=== PATIENT | female | born 1945 | race American Indian/Alaskan Native ===

== ENCOUNTER → 2016-07-15 | Outpatient (CLI) | payer MEDICARE ==
[~2016-07-15] MED LIST: OMNIPAQUE 350 MG/ML, 100ML BOTTLE ONE
== END | disposition home or self-care (01) ==
LOC: CFH 09:19
PROVIDERS: ATTEND Internal Medicine Hematology & Oncology
DX: N28.1 Cyst of kidney, acquired (principal); R16.1 Splenomegaly, not elsewhere classified; Z90.49 Acquired absence of other specified parts of digestive tract
CPT/HCPCS: 74160; Q9967

== ENCOUNTER 2018-12-07 10:07 | Outpatient (CLI) | payer MEDICARE | END 2018-12-07 23:59 | disposition home or self-care (01) | LOC: CVU 10:07 | PROVIDERS: ATTEND Family Medicine | DX: I83.023 Varicose veins of left lower extremity with ulcer of ankle (principal); I87.8 Other specified disorders of veins | CPT/HCPCS: 93970 ==

== ENCOUNTER 2020-01-24 12:44 | Emergency (ER) | payer MEDICARE ==
[~2020-01-24] VITALS: Ht 160 cm; Wt 66.0 kg
[~2020-01-24 12:44] MED LIST changes: +AMLO-150 PO; +HYDR25TA6 PO; +OMEP-110 PO; -OMNIPAQUE 350 MG/ML, 100ML BOTTLE ONE
[2020-01-24 12:58] VITALS: BP 146/87
--- NOTE | 2020-01-24 13:08 | NUR ---
pt amb to br with steady gait.
--- NOTE | 2020-01-24 13:24 | NUR ---
pt had glf in this am. pt has hematoma on left forehead and eye. pt denies loc/blood thinners/n/v. pt's aox4. resps even and unlabored. bp/spo2 monitors in place. call light within reach. pa at bedside evaluating at this time. ice pack applied on hematoma.
--- NOTE | 2020-01-24 13:46 | NUR ---
pt back to room from ct at this time.
--- NOTE | 2020-01-24 14:32 | NUR ---
pt amb to br and back to room with steady gait.
--- NOTE | 2020-01-24 14:41 | NUR ---
PT LEFT WITHOUT DC PAPERS. PA OK'D TO DC. PT VERBALY UNDERSTANDING DC INSTRUCTIONS. PT AMB TO DC WITH STEADY GAIT.
== END 2020-01-24 14:41 | disposition home or self-care (01) ==
LOC: ED 14:36
DX: S05.12XA Contusion of eyeball and orbital tissues, left eye, initial encounter (principal); S09.90XA Unspecified injury of head, initial encounter; I10 Essential (primary) hypertension; W01.0XXA Fall on same level from slipping, tripping and stumbling without subsequent striking against object, initial encounter; Y93.89 Activity, other specified; Y92.410 Unspecified street and highway as the place of occurrence of the external cause; Y99.8 Other external cause status
CPT/HCPCS: 70450; 70486; 99285

== ENCOUNTER 2020-04-06 19:27 | Inpatient (IN) | payer MEDICARE ==
[~2020-04-06] VITALS: Ht 152.4 cm; Wt 76.4 kg
[~2020-04-06 19:27] MED LIST changes: +LACT10SO24 PO; +LIVER AID PO; +LOSA25TA25 PO; +NAPR-685 PO; +POTA20PA25 PO
[2020-04-06] MEDS ORDERED: SODIUM CHLORIDE 0.9% 1,000ML IVBOLUS ONE ×3 (20:00→21:30)
--- NOTE | 2020-04-06 20:14 | NUR ---
CC OF CONFUSION AND NOT FEELING ANY BETTER AFTER BEING DC FROM HOSPITAL. LOW BP IN TRAIGE. NIECE AT BEDSIDE. PT A&0X 3, JAUNDICE EYES AND SKIN NOTED THROUGHOUT AND PT STATES SHE QUIT DRINKING 3 MONTHS AGO
[2020-04-06 20:44] LABS: BASOPHILS % (AUTO) 0 % (0-1); EOSINOPHILS % (AUTO) 2 % (1-7); LYMPHOCYTES % (AUTO) 13 % (22-44); MEAN CORPUSCULAR HEMOGLOBIN 33.2 pg (27.0-34.8); MEAN CORPUSCULAR HGB CONC 34.5 g/dL (32.4-35.8); MEAN PLATELET VOLUME 9.4 fL (7.4-10.4); MONOCYTES % (AUTO) 8 % (2-9); NEUTROPHILS % (AUTO) 78 % (42-75); PLATELET COUNT 137 x10^3/uL (130-400); RED BLOOD COUNT 4.43 x10^6/uL (3.82-5.3); RED CELL DISTRIBUTION WIDTH 21.3 % (9.6-15.2)
[2020-04-06] MEDS ORDERED: DEXTROSE 50%, 50ML SYRINGE ONE (20:47)
--- NOTE | 2020-04-06 20:52 | NUR ---
ERIBERTO ZAMORA [phone]
--- NOTE | 2020-04-06 20:52 | NUR ---
DALTON JORDAN [phone]
[2020-04-06 20:56] LABS: ALANINE AMINOTRANSFERASE 71 U/L (12-78); ALBUMIN 2.1 g/dL (3.4-5.0); ANION GAP 13 mmol/L (5-15); CALCIUM 8.7 mg/dL (8.5-10.1); CHLORIDE 110 mmol/L (98-107)
[2020-04-06 21:00] LABS: MD NO
[2020-04-06] MEDS ORDERED: DEXTROSE 50%, 50ML SYRINGE IVPush ONE (21:00)
[2020-04-06] MEDS ORDERED: PANTOPRAZOLE 80 MG in SODIUM CHLORIDE 0.9% 100 ML IV SCH (21:00)
[2020-04-06] MEDS ORDERED: PANTOPRAZOLE 80 MG in SODIUM CHLORIDE 0.9% 50 ML IVPB ONE (21:00)
[2020-04-06 21:02] LABS: MICROSCOPIC INDICATED
[2020-04-06 21:07] LABS: ALKALINE PHOSPHATASE 263 U/L (45-117); TROPONIN I < 0.015 ng/mL (0.000-0.045)
[2020-04-06 21:09] LABS: CREATININE 4.71 mg/dL (0.55-1.02); SALICYLATE LEVEL < 1.7 mg/dL (2.8-20.0)
[2020-04-06 21:10] LABS: BILIRUBIN,TOTAL 30.1 mg/dL (0.2-1.0)
[2020-04-06 21:11] LABS: AMPHETAMINE SCREEN, URINE Negative (Negative); BARBITURATE SCREEN, URINE Negative (Negative); BENZODIAZEPINE SCREEN, URINE Negative (Negative); CANNABINOID SCREEN, URINE Negative (Negative); COCAINE SCREEN, URINE Negative (Negative); METHADONE SCREEN, URINE Negative (Negative); OPIATE SCREEN, URINE Negative (Negative)
[2020-04-06] MEDS ORDERED: NOREPINEPHRINE 8 MG in SODIUM CHLORIDE 0.9% 242 ML IV PRN (21:30)
[2020-04-06] MEDS ORDERED: PIPERACILLIN/TAZO/PMX 3.375GM 50 ML IVPB ONE (21:30)
[2020-04-06] MEDS ORDERED: CEFTRIAXONE PMX 1GM/50ML 50 ML IVPB ONE (21:30)
--- NOTE | 2020-04-06 21:36 | NUR ---
DR MAGUIRE IN ROOM TO [facility] LINE Addendum: 04/06/20 at [address] CHAN IN ROOM TO [facility]
[2020-04-06 21:56] LABS: INTERNATIONAL NORMALIZED RATIO 2.68 (0.93-1.1); PROTHROMBIN TIME 28.1 Seconds (9.6-11.5)
[2020-04-06] MEDS ORDERED: CEFTRIAXONE PMX 1GM/50ML 50 ML ONE (22:30)
--- NOTE | 2020-04-06 23:14 | NUR ---
LATE ENTRY: CENTRAL LINE TRIPLE LUMEN PLACED BY DR CHAN TO RIGHT IJ WITH STERILE TECHNIQUE. PT TOLERATED WELL, MINIMAL BLEEDING NOTED. SHORTLY AFTER PT ROLLED TO RIGHT SIDE AND OOZING BLOOD FROM SITE NOTED WITH TEGRADERM FALLING OFF. DRESSING CHANGED DONE WITH STERILE TECHNIQUE, CDI. PT SLEEPING IN RNEY, WARM BLANKET GIVEN.
--- NOTE | 2020-04-06 23:47 | NUR ---
TASK RN: PT RESTING COMFORTABLY ON LEFT SIDE IN GURNEY, NAD, EYES CLOSED, EVEN AND UNLABORED RESPIRATIONS, WCTM.
[2020-04-07] MEDS ORDERED: hydrALAzine 20 MG/ML, 1ML IVPush PRN (00:30)
[2020-04-07] MEDS ORDERED: PROMETHAZINE 25 MG/ML, 1ML IM PRN (00:30)
[2020-04-07] MEDS ORDERED: ONDANSETRON 2MG/ML, 2ML IVPush PRN (00:30)
[2020-04-07] MEDS ORDERED: OXYcodone IR 5MG TABLET PO PRN (00:30)
[2020-04-07] MEDS ORDERED: ONDANSETRON ODT 4 MG PO PRN (00:30)
[2020-04-07 00:37] LABS: FREE T4 (FREE THYROXINE) 0.95 ng/dL (0.76-1.46)
--- NOTE | 2020-04-07 00:57 | NUR ---
PT SLEEPING, NO NEEDS AT THIS TIME.
[2020-04-07] MEDS ORDERED: PANTOPRAZOLE 40 MG IV ONE (01:20)
[2020-04-07] MEDS: D5%-0.45% NACL 1,000 ML IV SCH ×2 (01:29→08:38)
[2020-04-07] MEDS: PANTOPRAZOLE 40 MG IV IVPush SCH ×2 (01:33→12:45)
--- NOTE | 2020-04-07 02:14 | NUR ---
Daljit allen in [facility] - 04/07/20 at 0215 by THERESA report given to margarette alatorre
--- NOTE | 2020-04-07 02:16 | NUR ---
report given to margarette alatorre
[2020-04-07 02:49] VITALS: BP 107/49
[2020-04-07] MEDS: NOREPINEPHRINE 8 MG in SODIUM CHLORIDE 0.9% 242 ML IV PRN ×2 (03:17→05:33)
[2020-04-07 04:00] VITALS: BP 107/49
[2020-04-07 04:13] LABS: ALANINE AMINOTRANSFERASE 67 U/L (12-78); ALBUMIN 1.9 g/dL (3.4-5.0); ANION GAP 13 mmol/L (5-15); CALCIUM 7.6 mg/dL (8.5-10.1); CHLORIDE 112 mmol/L (98-107)
[2020-04-07 04:26] LABS: BASOPHILS % (AUTO) 0 % (0-1); EOSINOPHILS % (AUTO) 1 % (1-7); LYMPHOCYTES % (AUTO) 15 % (22-44); MEAN CORPUSCULAR HEMOGLOBIN 33.2 pg (27.0-34.8); MONOCYTES % (AUTO) 9 % (2-9); NEUTROPHILS % (AUTO) 75 % (42-75); PLATELET COUNT 166 x10^3/uL (130-400); RED BLOOD COUNT 4.06 x10^6/uL (3.82-5.3)
[2020-04-07 04:27] LABS: ALKALINE PHOSPHATASE 234 U/L (45-117); HDL CHOLESTEROL (DIRECT) 12 mg/dL (40-60)
[2020-04-07 04:30] LABS: TOTAL PROTEIN 4.5 g/dL (6.4-8.2); TRIGLYCERIDES 141 mg/dL (50-200); VLDL CHOLESTEROL 28 mg/dL (0-25)
[2020-04-07 04:31] LABS: CHOL/HDL RATIO 4.2; CHOLESTEROL, TOTAL < 50 mg/dL (140-239); HDL CHOL % 0 % (28-40); LDL CHOLESTEROL,CALCULATED 10 mg/dL (54-169); LDL/HDL RATIO 0.8 (0.5-3.0)
[2020-04-07 04:32] LABS: BILIRUBIN,TOTAL 28.6 mg/dL (0.2-1.0)
[2020-04-07 05:49] LABS: MD SCAN
[2020-04-07] MEDS: RIFAXIMIN 550 MG TABLET PO SCH ×2 (08:38→20:28)
[2020-04-07] MEDS: LACTULOSE 20 GM/30 ML UDC PO SCH ×3 (08:38→20:28)
[2020-04-07] MEDS ORDERED: LACTULOSE 10 GM/15 ML UDC PO SCH (09:00)
[2020-04-07] MEDS: NOREPINEPHRINE 32 MG in SODIUM CHLORIDE 0.9% 218 ML IV PRN (09:52)
[2020-04-07] MEDS ORDERED: PHARMACY MAY ADJ FOR RENAL FX MC PRN (11:30)
[2020-04-07] MEDS: MEROPENEM 500 MG in SODIUM CHLORIDE 0.9% 100 ML IV SCH (12:39)
[2020-04-07] MEDS ORDERED: HYDROCORTISONE 250 MG/2 ML IVPush SCH (13:00)
[2020-04-07] MEDS: SODIUM BICARBONATE 8.4% 150 MEQ in DEXTROSE 5% 1,000 ML IV SCH (13:13)
[2020-04-07] MEDS ORDERED: DEXTROSE 50%, 50ML SYRINGE IVPush PRN (13:30)
[2020-04-07] MEDS ORDERED: GLUCAGON 1 MG IM PRN (13:30)
[2020-04-07] MEDS ORDERED: DEXTROSE 4 GM TAB.CHEW PO PRN (13:30)
[2020-04-07] MEDS: ALBUMIN HUMAN 25% 100 ML IV SCH ×2 (13:42→20:33)
[2020-04-07] MEDS: HYDROCORTISONE 100 MG INJ. IVPush SCH ×2 (14:59→20:32)
[2020-04-07] MEDS: OCTREOTIDE 100MCG/ML, 1ML (0.1MG/ML) SQ SCH ×2 (16:27→20:34)
[2020-04-07] MEDS ORDERED: CEFTRIAXONE PMX 1GM/50ML 50 ML IV SCH (20:00)
[2020-04-07] MEDS: SODIUM CHLORIDE FLUSH 10ML SYR IVF SCH (20:34)
[2020-04-08] MEDS: PANTOPRAZOLE 40 MG IV IVPush SCH ×2 (00:36→13:59)
[2020-04-08] MEDS: NOREPINEPHRINE 32 MG in SODIUM CHLORIDE 0.9% 218 ML IV PRN (01:57)
[2020-04-08] MEDS: HYDROCORTISONE 100 MG INJ. IVPush SCH ×4 (01:59→21:31)
[2020-04-08 03:44] LABS: ALANINE AMINOTRANSFERASE 67 U/L (12-78); ALBUMIN 2.7 g/dL (3.4-5.0); ANION GAP 10 mmol/L (5-15); CALCIUM 7.7 mg/dL (8.5-10.1); CHLORIDE 111 mmol/L (98-107)
[2020-04-08 03:58] LABS: ALKALINE PHOSPHATASE 195 U/L (45-117)
[2020-04-08 04:07] LABS: BASOPHILS % (AUTO) 0 % (0-1); EOSINOPHILS % (AUTO) 0 % (1-7); LYMPHOCYTES % (AUTO) 15 % (22-44); MEAN CORPUSCULAR HEMOGLOBIN 33.5 pg (27.0-34.8); MEAN CORPUSCULAR HGB CONC 34.6 g/dL (32.4-35.8); MEAN PLATELET VOLUME 9.3 fL (7.4-10.4); MONOCYTES % (AUTO) 6 % (2-9); NEUTROPHILS % (AUTO) 79 % (42-75); PLATELET COUNT 90 x10^3/uL (130-400); RED CELL DISTRIBUTION WIDTH 22.1 % (9.6-15.2)
[2020-04-08 04:14] LABS: CREATININE 4.46 mg/dL (0.55-1.02); TOTAL PROTEIN 4.7 g/dL (6.4-8.2)
[2020-04-08 04:16] LABS: BILIRUBIN,TOTAL 29.8 mg/dL (0.2-1.0)
[2020-04-08] MEDS: SODIUM BICARBONATE 8.4% 150 MEQ in DEXTROSE 5% 1,000 ML IV SCH ×2 (05:09→15:34)
[2020-04-08] MEDS: ALBUMIN HUMAN 25% 100 ML IV SCH ×3 (05:09→21:32)
[2020-04-08 05:52] LABS: MD MORPH REVIEW ONLY
[2020-04-08 05:53] LABS: <PLATELET ESTIMATE> DECREASED; ANISOCYTOSIS 1+; ECHINOCYTES 1+; OVALOCYTES 1+; SMALL PLATELETS 1+
[2020-04-08] MEDS: SODIUM CHLORIDE FLUSH 10ML SYR IVF SCH ×2 (10:04→21:33)
[2020-04-08] MEDS: OCTREOTIDE 100MCG/ML, 1ML (0.1MG/ML) SQ SCH ×3 (10:11→22:30)
[2020-04-08] MEDS: RIFAXIMIN 550 MG TABLET PO SCH ×2 (12:32→21:30)
[2020-04-08] MEDS: LACTULOSE 20 GM/30 ML UDC PO SCH ×3 (12:32→21:29)
[2020-04-08] MEDS: MEROPENEM 500 MG in SODIUM CHLORIDE 0.9% 100 ML IV SCH (12:32)
[2020-04-08] MEDS: MIDODRINE 5 MG TABLET PO SCH ×3 (12:32→21:29)
[2020-04-09] VITALS (7 sets, daily range): BP systolic 97–112; BP diastolic 42–76
[2020-04-09] MEDS: PANTOPRAZOLE 40 MG IV IVPush SCH ×2 (00:48→12:13)
[2020-04-09] MEDS: HYDROCORTISONE 100 MG INJ. IVPush SCH ×4 (03:12→21:19)
[2020-04-09 04:03] LABS: BASOPHILS % (AUTO) 0 % (0-1); EOSINOPHILS % (AUTO) 0 % (1-7); LYMPHOCYTES % (AUTO) 13 % (22-44); MEAN CORPUSCULAR HEMOGLOBIN 34.3 pg (27.0-34.8); MEAN PLATELET VOLUME 9.4 fL (7.4-10.4); MONOCYTES % (AUTO) 9 % (2-9); NEUTROPHILS % (AUTO) 78 % (42-75); RED BLOOD COUNT 2.46 x10^6/uL (3.82-5.3); RED CELL DISTRIBUTION WIDTH 21.1 % (9.6-15.2)
[2020-04-09 04:12] LABS: CALCIUM 7.3 mg/dL (8.5-10.1); CHLORIDE 111 mmol/L (98-107)
[2020-04-09] MEDS ORDERED: LORazepam 2 MG/ML, 1ML ONE (04:16)
[2020-04-09 04:27] LABS: ALANINE AMINOTRANSFERASE 58 U/L (12-78); ALKALINE PHOSPHATASE 128 U/L (45-117)
[2020-04-09] MEDS ORDERED: LORazepam 2 MG/ML, 1ML IVPush ONE (04:30)
[2020-04-09 04:53] LABS: ANION GAP 10 mmol/L (5-15)
[2020-04-09 04:56] LABS: CREATININE 3.97 mg/dL (0.55-1.02)
[2020-04-09 05:02] LABS: TOTAL PROTEIN 4.3 g/dL (6.4-8.2)
[2020-04-09 05:04] LABS: BILIRUBIN,TOTAL 24.5 mg/dL (0.2-1.0)
[2020-04-09] MEDS: ALBUMIN HUMAN 25% 100 ML IV SCH ×3 (05:07→21:18)
[2020-04-09 06:14] LABS: PLATELET COUNT 35 x10^3/uL (130-400)
[2020-04-09] MEDS ORDERED: NOREPINEPHRINE 32 MG in SODIUM CHLORIDE 0.9% 218 ML IV PRN (06:14)
[2020-04-09 06:15] LABS: MD MORPH REVIEW ONLY
[2020-04-09 06:17] LABS: ANISOCYTOSIS 2+; MICROCYTOSIS 1+; SCHISTOCYTES 1+
[2020-04-09 06:18] LABS: ECHINOCYTES 1+; OVALOCYTES 1+
[2020-04-09 06:19] LABS: <PLATELET ESTIMATE> DECREASED; <PLT MORPHOLOGY> NORMAL PLT MORPH
[2020-04-09] MEDS ORDERED: POTASSIUM CHLORIDE 40 MEQ in SODIUM CHLORIDE 0.9% 100 ML IV ONE (06:30)
[2020-04-09] MEDS: SODIUM CHLORIDE FLUSH 10ML SYR IVF SCH ×2 (09:03→21:18)
[2020-04-09] MEDS: OCTREOTIDE 100MCG/ML, 1ML (0.1MG/ML) SQ SCH ×3 (09:08→21:19)
[2020-04-09] MEDS: LACTATED RINGERS 1,000 ML IV SCH ×2 (09:09→16:38)
[2020-04-09] MEDS: POTASSIUM CHLORIDE 40 MEQ in SODIUM CHLORIDE 0.9% 500 ML IV ONE ×2 (09:09→09:30)
[2020-04-09] MEDS: RIFAXIMIN 550 MG TABLET PO SCH ×2 (09:28→19:25)
[2020-04-09] MEDS: MIDODRINE 5 MG TABLET PO SCH ×3 (09:28→19:25)
[2020-04-09] MEDS: LACTULOSE 20 GM/30 ML UDC PO SCH ×3 (09:28→19:24)
[2020-04-09] MEDS: OXYMETAZOLINE NASAL SPRAY 0.05%, 15ML NAS SCH ×2 (11:55→20:06)
[2020-04-09] MEDS: MEROPENEM 500 MG in SODIUM CHLORIDE 0.9% 100 ML IV SCH (12:10)
[2020-04-09] MEDS ORDERED: SODIUM BICARBONATE 8.4% 150 MEQ in DEXTROSE 5% 1,000 ML IV SCH (12:30)
[2020-04-10] MEDS: PANTOPRAZOLE 40 MG IV IVPush SCH (00:16)
[2020-04-10] MEDS: LACTATED RINGERS 1,000 ML IV SCH (00:16)
[2020-04-10] MEDS: HYDROCORTISONE 100 MG INJ. IVPush SCH (03:47)
[2020-04-10 04:19] LABS: BASOPHILS % (AUTO) 0 % (0-1); EOSINOPHILS % (AUTO) 0 % (1-7); LYMPHOCYTES % (AUTO) 10 % (22-44); MEAN CORPUSCULAR HEMOGLOBIN 34.6 pg (27.0-34.8); MEAN CORPUSCULAR HGB CONC 36.5 g/dL (32.4-35.8); MEAN PLATELET VOLUME 8.9 fL (7.4-10.4); MONOCYTES % (AUTO) 7 % (2-9); NEUTROPHILS % (AUTO) 83 % (42-75); RED BLOOD COUNT 2.12 x10^6/uL (3.82-5.3); RED CELL DISTRIBUTION WIDTH 21.1 % (9.6-15.2)
[2020-04-10 04:27] LABS: ALANINE AMINOTRANSFERASE 56 U/L (12-78); ALBUMIN 3.6 g/dL (3.4-5.0); ANION GAP 8 mmol/L (5-15); CALCIUM 7.5 mg/dL (8.5-10.1); CHLORIDE 112 mmol/L (98-107)
[2020-04-10 04:29] LABS: ALKALINE PHOSPHATASE 112 U/L (45-117)
[2020-04-10 04:31] LABS: PLATELET COUNT 37 x10^3/uL (130-400)
[2020-04-10 04:32] LABS: CREATININE 3.25 mg/dL (0.55-1.02); TOTAL PROTEIN 4.6 g/dL (6.4-8.2)
[2020-04-10 04:34] LABS: BILIRUBIN,TOTAL 24.8 mg/dL (0.2-1.0)
[2020-04-10] MEDS: ALBUMIN HUMAN 25% 100 ML IV SCH (04:59)
[2020-04-10 06:23] LABS: <PLATELET ESTIMATE> DECREASED; <PLT MORPHOLOGY> NORMAL PLT MORPH; MD MORPH REVIEW ONLY
[2020-04-10 06:24] LABS: ANISOCYTOSIS 2+; MICROCYTOSIS 1+; SCHISTOCYTES 1+; TARGET CELLS 1+
[2020-04-10] MEDS ORDERED: MORPHINE SULFATE 4 MG/ML, 1ML IVPush PRN (11:00)
[2020-04-10] MEDS ORDERED: ATROPINE OPHTH SOLN 1%, 5ML PO PRN (11:00)
[2020-04-10] MEDS ORDERED: MORPHINE SULFATE 4 MG/ML, 1ML IV PRN (11:00)
[2020-04-10] MEDS ORDERED: ONDANSETRON 2MG/ML, 2ML IVPush PRN (11:00)
[2020-04-10] MEDS ORDERED: LORazepam 2 MG/ML, 1ML ONE (11:12)
[2020-04-10] MEDS: LORazepam 2 MG/ML, 1ML IVPush PRN ×3 (11:13→16:26)
[2020-04-10] MEDS: MORPHINE 30MG/30ML PCA.SYR IV PRN ×3 (12:13→22:31)
[2020-04-11] MEDS: MORPHINE 30MG/30ML PCA.SYR IV PRN (03:33)
== END 2020-04-11 10:24 | disposition expired | DRG 871 ==
LOC: ED 21:09 → EDIP 23:04 → CCU 04-07 02:30 → 4NE 04-10 17:50
PROVIDERS: ADMIT Internal Medicine; ATTEND Internal Medicine
PROC: 0T9B70Z Drainage of Bladder with Drainage Device, Via Natural or Artificial Opening (ICD-10-PCS; principal; 2020-04-06)
PROC: 02HV33Z Insertion of Infusion Device into Superior Vena Cava, Percutaneous Approach (ICD-10-PCS; 2020-04-06)
PROC: B548ZZA Ultrasonography of Superior Vena Cava, Guidance (ICD-10-PCS; 2020-04-06)
PROC: 30233R1 Transfusion of Nonautologous Platelets into Peripheral Vein, Percutaneous Approach (ICD-10-PCS; 2020-04-09)
PROC: 2Y41X5Z Packing of Nasal Region using Packing Material (ICD-10-PCS; 2020-04-09)
DX: A41.59 Other Gram-negative sepsis (principal); G93.41 Metabolic encephalopathy; N17.0 Acute kidney failure with tubular necrosis; J96.90 Respiratory failure, unspecified, unspecified whether with hypoxia or hypercapnia; R65.21 Severe sepsis with septic shock; D62 Acute posthemorrhagic anemia; D68.69 Other thrombophilia; E87.1 Hypo-osmolality and hyponatremia; E87.2 Acidosis; K62.5 Hemorrhage of anus and rectum; K76.6 Portal hypertension; D68.9 Coagulation defect, unspecified; Z51.5 Encounter for palliative care; Z66 Do not resuscitate; N30.90 Cystitis, unspecified without hematuria; K70.40 Alcoholic hepatic failure without coma; B95.4 Other streptococcus as the cause of diseases classified elsewhere; B96.20 Unspecified Escherichia coli [E. coli] as the cause of diseases classified elsewhere; B96.89 Other specified bacterial agents as the cause of diseases classified elsewhere; D69.6 Thrombocytopenia, unspecified; E16.2 Hypoglycemia, unspecified; E86.0 Dehydration; E88.09 Other disorders of plasma-protein metabolism, not elsewhere classified; I10 Essential (primary) hypertension; K70.31 Alcoholic cirrhosis of liver with ascites; R04.0 Epistaxis; F10.21 Alcohol dependence, in remission
CPT/HCPCS: 36415; 71045; 74018; 76700; 80053; 80061; 80299; 80307; 80320; 80329; 81001; 82140; 82533; 82962; 83036; 83605; 83735; 84100; 84145; 84439; 84443; 84484; 85014; 85018; 85025; 85610; 86850; 86900; 87040; 87077; 87081; 87086; 87181; 87186; 93005; G0378; J0696; J2185; J2270; J2354; J3480; J7070; P9047; C9113; G0480; J1720; J2060; J7030; J7040; J7050; J7120; P9035